=== PATIENT | female | born 1995 | race Caucasian/White ===

== ENCOUNTER 2021-03-28 12:27 | Emergency (ER) | payer MEDICAID ==
[~2021-03-28] VITALS: Ht 162.6 cm; Wt 68.0 kg
[2021-03-28] MEDS ORDERED: BACITRACIN ZINC OINT UDPKT TOP ONE (13:30)
[2021-03-28] MEDS ORDERED: IBUPROFEN 600MG TABLET PO ONE (13:30)
[2021-03-28] MEDS ORDERED: LIDOCAINE HCL/PF 1% 10 MG/ML 5ML VIAL INFIL ONE (13:30)
[2021-03-28] MEDS ORDERED: CEPH500T PO (14:17)
[2021-03-28] MEDS ORDERED: IBUP-2029 PO (14:17)
[2021-03-28] MEDS ORDERED: BO1 TP (14:17)
[2021-03-28 15:00] VITALS: BP 117/61
== END 2021-03-28 15:02 | disposition home or self-care (01) ==
LOC: ER 12:27
DX: L60.0 Ingrowing nail (principal)
CPT/HCPCS: 11730; 99284; J3490; Z7610; 99283